=== PATIENT | male | born 1975 | race Caucasian/White ===

== ENCOUNTER 2017-02-01 23:13 | Emergency (ER) | payer MEDICAID ==
[~2017-02-01] VITALS: Ht 175.3 cm; Wt 90.7 kg
[2017-02-01 23:18] VITALS: BP 125/73
--- NOTE | 2017-02-01 23:23 | NUR ---
pt to lobby awaiting room for MSE. VSS.
--- NOTE | 2017-02-01 23:25 | NUR ---
NO PD NOTIFIED; PT DOES NOT WANT TO FILE REPORT. SPOKE STEPHENIE, DISPATCH STATES THEY BELIEVE THEY HAVE A REPORT ALREADY, SHE WILL CONTACT WATCH COMMAND AND CALL US BACK IF THEY ARE GOING TO SEND PD OUT, OF NOW, THEY ARE NOT.
--- NOTE | 2017-02-01 23:34 | NUR ---
Patient to [facility]. RN evaluating patient.
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
--- NOTE | 2017-02-01 23:55 | NUR ---
PT BACK FROM XRAY AAOX4.
--- NOTE | 2017-02-02 00:48 | NUR ---
Dr. Montes evaluating patient in [facility].
[2017-02-02] MEDS ORDERED: ceFAZolin 1,000 MG VIAL IM ONE (00:55)
--- NOTE | 2017-02-02 01:03 | NUR ---
IM MEDS GIVEN-NADR AT THIS TIME
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
[2017-02-02] MEDS ORDERED: BACITRACIN OINT 500 UNITS/GM PKT TP ONE (01:05)
[2017-02-02] MEDS ORDERED: WATER STERILE 10 ML MC ONE (01:16)
[2017-02-02 01:35] VITALS: BP 121/69
--- NOTE | 2017-02-02 01:35 | NUR ---
Patient discharged with v/s stable. Written and verbal after care instructions given and explained. Patient alert, oriented and verbalized understanding of instructions. Ambulatory with steady gait. All questions addressed prior to discharge. ID band removed. Patient advised to follow up with PMD. Rx of KEFLEX AND NAPROSYN given. Patient educated on indication of medication including possible reaction and side effects. Opportunity to ask questions provided and answered.
[2017-02-02] MEDS ORDERED: BACITRACIN ZINC/POLYMYXIN B OINT 30 GM TUBE TP SCH (09:00)
== END 2017-02-02 01:35 | disposition home or self-care (01) ==
LOC: MED 23:13
DX: S92.511A Displaced fracture of proximal phalanx of right lesser toe(s), initial encounter for closed fracture (principal); W34.09XA Accidental discharge from other specified firearms, initial encounter; Y93.89 Activity, other specified; Y92.89 Other specified places as the place of occurrence of the external cause; Y99.8 Other external cause status
CPT/HCPCS: 73630; 90471; 90715; 96372; 99284; J0690

== ENCOUNTER 2022-07-28 17:45 | Emergency (ER) | payer MEDICAID ==
[~2022-07-28] VITALS: Ht 172.7 cm; Wt 90.7 kg
[2022-07-28 18:00] VITALS: BP 124/70; PULSE 79; RESP 17; TEMP 97.4; O2SAT 98
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
[2022-07-28] MEDS ORDERED: NALO4SPR NS (18:20)
[2022-07-28 18:37] VITALS: BP 124/80; PULSE 74; RESP 17; O2SAT 99
--- NOTE | 2022-07-28 18:37 | NUR ---
PATIENT [facility] [facility]. PATIENT EXAMINED BY DR. TAYLOR. PATIENT MEDICALLY CLEARED AND RELEASED IN CUSTODY IN STABLE CONDITION. ORIGINAL PRE-BOOK FORM GIVEN TO OFFICER
== END 2022-07-28 18:37 ==
LOC: MED 17:45
DX: Z02.89 Encounter for other administrative examinations (principal); F12.90 Cannabis use, unspecified, uncomplicated; Z79.899 Other long term (current) drug therapy; V49.9XXA Car occupant (driver) (passenger) injured in unspecified traffic accident, initial encounter; Y93.89 Activity, other specified; Y92.410 Unspecified street and highway as the place of occurrence of the external cause; Y99.8 Other external cause status
CPT/HCPCS: 99283

== ENCOUNTER 2023-05-01 05:55 | Emergency (ER) | payer MEDICAID ==
[~2023-05-01] VITALS: Ht 167.6 cm; Wt 98.4 kg
[~2023-05-01 05:55] MED LIST: NALO4SPR NS
[2023-05-01 06:14] VITALS: BP 148/92; PULSE 111; RESP 18; TEMP 98.2; O2SAT 97
[2023-05-01] MEDS: IBUPROFEN 600 MG TAB PO ONE (06:37)
[2023-05-01 06:52] LABS: BASOPHILS % (AUTO) 0.2 % (0.0-2.0); EOSINOPHILS # (AUTO) 0.1 K/uL (0-0.4); EOSINOPHILS % (AUTO) 0.4 % (0.0-4.0); HEMATOCRIT 43.7 % (36-52); HEMOGLOBIN 15.1 g/dL (12.0-18.0); LYMPHOCYTES % (AUTO) 13.1 % (20.5-51.1); MEAN CORPUSCULAR HEMOGLOBIN 32 pg (27-31); MEAN CORPUSCULAR HGB CONC 35 g/dL (33-37); MEAN CORPUSCULAR VOLUME 93.1 fL (80-94); MONOCYTES # (AUTO) 1.1 K/uL (0.8-1.0); MONOCYTES % (AUTO) 6.9 % (1.7-9.3); NEUTROPHILS # (AUTO) 12.1 K/uL (1.8-7.7); NEUTROPHILS % (AUTO) 79.4 % (42.2-75.2); PLATELET COUNT (AUTO) 340 K/uL (140-450); RED BLOOD CELL COUNT(AUTO) 4.69 MIL/uL (4.20-6.10); RED CELL DISTRIBUTION WIDTH 12.8 % (11.6-13.7); WHITE BLOOD COUNT (AUTO) 15.3 K/uL (4.8-10.8)
[2023-05-01 07:22] LABS: ANION GAP 14.4 (8-16); CALCIUM 8.8 mg/dL (8.5-10.1); CARBON DIOXIDE 25.6 mmol/L (21-32); CREATININE 0.8 mg/dL (0.6-1.3)
[2023-05-01] MEDS: cephALEXin 500 MG CAP PO ONE (07:43)
[2023-05-01] MEDS: SULFAMETH/TRIMETH DS 800/160MG 1 TAB PO ONE (07:46)
[2023-05-01] MEDS: NACL 0.9% 1,000 ML IV ONE (07:49)
[2023-05-01] MEDS: MORPHINE SULFATE 4 MG/ML SYR IVP ONE (07:56)
[2023-05-01] MEDS: ONDANSETRON 4 MG/2 ML VIAL IVP ONE (07:57)
[2023-05-01] MEDS ORDERED: CEPH-588 PO (08:23)
[2023-05-01] MEDS ORDERED: HYDR-5191 PO (08:23)
[2023-05-01] MEDS ORDERED: SULF-58 PO (08:23)
[2023-05-01 08:55] VITALS: BP 139/89; PULSE 81; RESP 16; TEMP 98.2; O2SAT 97
== END 2023-05-01 08:55 | disposition home or self-care (01) ==
LOC: MED 05:55
DX: L03.311 Cellulitis of abdominal wall (principal); Z79.899 Other long term (current) drug therapy
CPT/HCPCS: 36415; 80048; 83605; 85025; 87040; 87070; 87075; 87205; 96361; 96374; 99285; J2270; J7030; 87186; J2405